=== PATIENT | female | born 1925 | race Caucasian/White ===

== ENCOUNTER 2016-10-01 06:53 | Inpatient (IN) | payer OTHER ==
[~2016-10-01] VITALS: Ht 144.8 cm; Wt 59.2 kg
--- NOTE | 2016-10-01 07:08 | NUR ---
PT HERE FOR CHEST PAIN THAT STARTED LAST NIGHT MIDSTERNAL NONRADIATING AND PROVOKED BY COUGHING AND SPITTING. PER FAMILY AT BEDSIDE PT WAS CHOKING ON HER PHLEGM AND THATS WHY HE BROUGHT HER IN TO THE HOSPITAL. DENIES PAIN UPON ARRIVAL WITH STABLE VITALS AND 0 S/S DISTRESS. CLAIMS SHE HAS BEEN SICK WITH A COLD FOR A FEW DAYS. CONNECTEC TO PPA TEACHER AND AWAITING MD LEUNG
--- NOTE | 2016-10-01 07:10 | NUR ---
DR EN[place]AND AT BEDSIDE
--- NOTE | 2016-10-01 07:25 | NUR ---
LAB AT BEDSIDE
[2016-10-01 07:48] LABS: CALCIUM 9.1 mg/dL (8.5-10.1); CARBON DIOXIDE 27.5 mmol/L (21-32); CHLORIDE SERUM 101 mmol/L (98-107); CREATININE SERUM 0.8 mg/dL (0.6-1.0); GLUCOSE SERUM 152 mg/dL (74-106); POTASSIUM SERUM 3.9 mmol/L (3.5-5.1); SODIUM SERUM 138 mmol/L (136-145)
[2016-10-01 07:53] LABS: ALBUMIN 3.5 g/dL (3.4-5.0); ALKALINE PHOSPHATASE 99 U/L (46-116); ALT/SGPT 7 U/L (14-59); AST/SGOT 24 U/L (15-37); BILIRUBIN TOTAL 0.36 mg/dL (0.20-1.00); TOTAL PROTEIN, SERUM 7.8 g/dL (6.4-8.2)
[2016-10-01 07:59] LABS: BASOPHIL % 0.3 % (0-2); PLATELET COUNT 227 x10^3mcL (130-400); RED CELL DISTRIBUTION WIDTH 14.1 % (11.5-14.5)
--- NOTE | 2016-10-01 08:07 | NUR ---
PATIENT UNABLE TO URINATE AT THIS TIME. GAVE WATER AND WILL CONTINUE TO ENCOURAGE.
--- NOTE | 2016-10-01 08:16 | NUR ---
PATIENT UP TO RESTROOM TO ATTEMPT TO GIVE URINE SAMPLE AT THIS TIME
[2016-10-01] MEDS ORDERED: GALANTAMINE PO (09:03)
[2016-10-01] MEDS ORDERED: NAMENDA10 M2 PO (09:03)
[2016-10-01] MEDS ORDERED: RISPERDAL0.25 MG PO (09:03)
[2016-10-01] MEDS ORDERED: COR6 PO (09:04)
[2016-10-01] MEDS ORDERED: GLIPIZIDE5 M2 PO (09:04)
[2016-10-01] MEDS ORDERED: BENAZEPRIL HYDR20 M1 PO (09:04)
[2016-10-01] MEDS ORDERED: NOR5 PO (09:04)
[2016-10-01] MEDS ORDERED: HYDROCHLOROTHIA25 MG PO (09:04)
[2016-10-01] MEDS ORDERED: SIMVASTATIN40 M1 PO (09:05)
--- NOTE | 2016-10-01 09:25 | NUR ---
REPORT TO STACY GARVIN RN
[2016-10-01 10:39] LABS: PHOSPHOROUS 3.8 mg/dL (2.5-4.9)
[2016-10-01 10:41] LABS: CHOLESTEROL/HDL RATIO 3.2
[2016-10-01 10:49] VITALS: BP 135/59
[2016-10-01 10:49] LABS: FREE T4 1.22 ng/dL (0.76-1.46); FREE THYROXINE INDEX 2.9 ug/dL (1.4-4.5); T4(THYROXINE) 9.8 ug/dL (4.7-13.3)
[2016-10-01 11:01] LABS: UA SPECIFIC GRAVITY 1.015 (1.005-1.035); microscopic required? YES; urine erythrocyte TRACE (NEGATIVE)
--- NOTE | 2016-10-01 11:11 | NUR ---
RECEIVED PATIENT WITH SON ALONG. PATIENTS WANTING TO EAT BUT DUE TO THE NEW ADMISSION THE NURSE WOULD LIKE TO REVIEW THE ORDERS AND THEN ADVISE THE FAMILHY OF PLAN OF CARE. PATIENT VITALS BRITTON LEWIS T 135/59, 20,8.1, 48. PATIENT IS 4'9" AND IS AT A WT OF 130.9 LBS. 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 SON IS HER CAREGIVER WHERE SHE LIVES WITH HIM IN HIS HOME. PATIENT HAS CLEAR BUT DIMINISHED BREATH SPOUNDS AN BOWEL SOUND ACTIVE AND TOELRATED DIET WELL AT HOME. PATIENT HAS HISTORY OF HEMORRIDS AND RECTAL BLEEDING. AND WITH HISTORY OF HIGH CHOLESTEROL AND HYPERTENSION. PATIENT HAS DIABETES AND SHE RECEIVED FENTANYL FOR PAIN IN THE EMERGENCY ROOM AND ASA FOR CHEST PAIN. PATIEN TNOTED TO HAVE HAD ROHECPHIN AT 900AM AND SRTED ON NORMAL SALINE AT 100CC PER HOUR. CHEST XRAY IS NEGATIVE AND PATIENT TOLERATE REOOM AIR AT THIS TIME. PATIENT HAS MODERATE PULSES TO HTE EXTREMTIES AND NO STEFANY NTOED. PATIENT WALKER AND CANE AT HOME BUT SHE REFUSES TO USE PER THE SON. PATIENT IS WITH ALLERGY TO CODINE AND USED TO SMOKE BUT NEVER DRANK. HER TWO SIBLINGS OF THE TWO ONE OF ALZHIEMERS WELL HER MOTHER AND THE OTHER SISTER OF CANCER. FATHER IN AN ACIDENT. WILL CONTINUED TO MONITOR INDICATED.
--- NOTE | 2016-10-01 12:00 | NUR ---
SPOKE THE PERSONAL BANKING ADVISOR AND ADVISED THE PATIENT FAMILY WOULD LIKE TO SPEAK WITH HIM ABOUT HIS MOTHER.
[2016-10-01 13:35] VITALS: BP 149/55
--- NOTE | 2016-10-01 14:06 | NUR ---
SON IS REQUESTING FOR THE SEVERAL TIMES TO HAVE THE DOCTOR COME SPEAK WITH HIM ON THE PATIENTS PLAN OF CARE. SPOKE WITH THE GEOSPATIAL DEVELOPER AND HE WAS FINISHING UP A DICTATION AND THEN STAFF THOUGHT HE FORGOT AND WHEN THE FAMILY COMPLAINED STAFF CALLED AGAIN. THE GEOSPATIAL DEVELOPER STATES HE IS DOING AN ADMISSION AND WILL BE THERE AFTER HE HAS COMPLETED. THE FAMILY AT THIS POINT IS STATING HE IS AGITATED AND NEEDS TO EAT AND SLEEP AND HAS BEEN UP ALL NIGHT. OFFERED TO HAVE THE GEOSPATIAL DEVELOPER CALL HIM ON THE PATIENTS CELL BUT THE FAMILY REFUSED AND WANTS TO DO A FACE TO FACE. ADVISED THE CHARGE NURSE.
--- NOTE | 2016-10-01 17:00 | NUR ---
BLOOD SUGAR AT THIS TIME AT 86 AND NO COVERAGE WAS [id number]. PATIENT IS SO FAR COOPERATIVE AND WILL CONTINUE TO MONITOR INDICATED.
[2016-10-01 18:27] VITALS: BP 111/50
--- NOTE | 2016-10-01 20:00 | NUR ---
PT ALERT/ORIENTED X1. PT SON IN ROOM. 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 NO C/O PAIN. SKIN IS INTACT, INSIDE BUTTOCK FOLDS THE SKIN APPEARS TO BE WHITE. PT SON WANTS PT TO WEAR DIAPERS, PT WEARING DIAPER. INSTRUCTED PT SON THAT THIS HOSPITAL DOES NOT USE DIAPERS ON PT'S AND DISCOURAGES PT FAMILIES NOT TO PUT PT IN DIAPERS IN THE HOSPITAL AND THE REASONING BEHIND IT. PT SON STILL WANTS PT TO WEAR DIAPERS. WILL CONTINUE TO MONITOR.
--- NOTE | 2016-10-01 21:00 | NUR ---
PT TRANSFERED TO ROOM 210A.
[2016-10-01 21:54] VITALS: BP 151/56
[2016-10-01 21:55] VITALS: BP 148/86
--- NOTE | 2016-10-01 23:00 | NUR ---
PT SLEEPING. NO DISTRESS NOTED. WILL CONTINUE TO MONITOR.
--- NOTE | 2016-10-02 01:58 | NUR ---
PT SLEEPING. NO DISTRESS NOTED. WILL CONTINUE TO MONITOR.
--- NOTE | 2016-10-02 03:40 | NUR ---
PT SLEEPING. NO DISTRESS NOTED. BREATHING IS EVEN AND UNLABORED. WILL CONTINUE TO MONITOR.
[2016-10-02 05:29] VITALS: BP 119/44
--- NOTE | 2016-10-02 06:52 | NUR ---
PT SLEPT IN LONG INTERVALS THROUGHOUT THE NIGHT. NO C/O PAIN. WILL CONTINUE TO MONITOR.
--- NOTE | 2016-10-02 07:25 | NUR ---
RECEIVED PATIENT ASLEEP BUT AROUSABLE ORIENTED TO HERSELF , NO DISTRESS NOTED. BED ALARM IN PLACE. IV INTACT, REFUSED SCD. CALL LIGHT WITHIN REACH, CONT TO MONITOR.
--- NOTE | 2016-10-02 09:50 | NUR ---
PATIENT IN BED NO DISTRESS NOTED, ALL DUE MEDS GIVEN; HR 56 HELD COREG AND LOPRESSOR ORDERED. ASSIST PATIENT TO BATHROOM VOIDED AND ASSIST BACK TO BED. REPOSITIONED UP IN BED, CONT TO MONITOR.
[2016-10-02 10:04] VITALS: BP 121/40
--- NOTE | 2016-10-02 11:38 | NUR ---
DR VELASQUEZ WAS PAGE FOR PATIENT'S SON JOE; PER MD WILL SEEN PATIENT SOON; SON WAS INFORM MD WILL TALK HIM. ASSISTING PATIENT TO BATHROOM; SON REMAIN IN ROOM TO KEEP PATIENT SAFETY.
[2016-10-02 12:58] LABS: BASOPHIL % 0.3 % (0-2); PLATELET COUNT 186 x10^3mcL (130-400); RED CELL DISTRIBUTION WIDTH 14.1 % (11.5-14.5)
--- NOTE | 2016-10-02 13:00 | NUR ---
PATIENT IV LEAKING, DC'D INTACT. INFORM SON WHEN PATIENT FINISH WITH LUNCH; WILL RE-INSERT NEW IV SITE. SON ASSISTING PATIENT WITH MEAL AT THIS TIME.
[2016-10-02 13:35] VITALS: BP 120/45
--- NOTE | 2016-10-02 13:47 | NUR ---
Patient resting in bed with son at bedside, Dr. Torres in the room to speak with son Baltazar and update pt's condition; per MD no discharge today waiting for ECHO result. IV re-inserted to RW # 22 with son assisting hold patient arm from pulling; with good blood return and flush well; patient tolerated well. Needs attended. Son request to spend another if mother is not discharge home today inform son will talk to CN. Cont to monitor.
[2016-10-02 14:15] LABS: CALCIUM 8.2 mg/dL (8.5-10.1); CARBON DIOXIDE 26.8 mmol/L (21-32); CHLORIDE SERUM 107 mmol/L (98-107); CREATININE SERUM 0.8 mg/dL (0.6-1.0); GLUCOSE SERUM 116 mg/dL (74-106); MAGNESIUM 1.9 mg/dL (1.8-2.4); PHOSPHOROUS 3.2 mg/dL (2.5-4.9); POTASSIUM SERUM 3.3 mmol/L (3.5-5.1); SODIUM SERUM 140 mmol/L (136-145)
--- NOTE | 2016-10-02 15:00 | NUR ---
FOUND PATIENT WAS UP AT THE SIDE OF BED; TOOK HER GOWN OFF AND TELE WAS REMOVED LEFT IN BED; PATIENT PLAYING WITH IV PUMP; ASSIST PATIENT PUT ON THE GOWN AND PLACE TELE BACK; INSTRUCT PATIENT NOT TO REMOVED THE TELE BOX; ASSIST PATIENT TO BATHROOM HAS SMALL BM; MELODY CARE GIVEN. ASSISTING BACK TO BED. REPOSITIONED UP IN BED, CONT TO MONITOR.
--- NOTE | 2016-10-02 15:58 | NUR ---
PATIENT IS VERY CONFUSED; WON'T KEEP HER TELE MONITOR ON; RE-INFORCED PATIENT TO KEEP IT ON. BATTERY CHARGER TESTER CONSTANT CHECKING ON PATIENT AND TO REMIND TO PATIENT NOT TOUCH MONITOR. BED ALARM ON. CONT TO MONITOR.
--- NOTE | 2016-10-02 16:45 | NUR ---
Patient attempt getting out of bed constantly; unable to keep patient in bed. Per CN will have to restraint patient for safety; Dr. Torres was inform and obtain new order. Assisting patient to bathroom per request, cont to monitor.
[2016-10-02 16:57] VITALS: BP 136/95
--- NOTE | 2016-10-02 17:08 | NUR ---
PATIENT REPOSITIONED UP IN BED; PLACE TELE BOX ON; APPLIED BILAT SOFT WRIST RESTRAINT, PATIENT SCREAMING AND STILL TRY TO GET UP; HELP DESK AGENT TRY TO HELP PATIENT PATIENT IS MORE AGITATED; ALLOW PATIENT TO CALM DOWN, CONT TO MONITOR.
--- NOTE | 2016-10-02 17:20 | NUR ---
PATIENT'S SON ARRIVE AT THIS TIME ABLE TO CALM PATIENT, ASKING NURSE TO REMOVED RESTRAINT; RESTRAINT IS REMOVED. SON WANT TO SPEAK WITH MD. DR. VELASQUEZ WAS INFORM AND WILL SPEAK TO SON.
[2016-10-02] MEDS ORDERED: LAC PO (17:32)
[2016-10-02] MEDS ORDERED: CIPRO500 MG PO (17:32)
--- NOTE | 2016-10-02 17:40 | NUR ---
PATIENT'S SON SPOKE WITH DR. VELASQUEZ AND WANT TO TAKE MOTHER HOME AGAINST MEDICAL ADVICE; AMA FORM SIGN WITH THE PRESENT OF DR. VELASQUEZ. IV DC'D AND INTACT. SON ASSISTING PATIENT GETTING DRESS AT THIS TIME.
--- NOTE | 2016-10-02 17:58 | NUR ---
MORAIMA WHEEL PATIENT OUT AT THIS TIME WITH SON ACCOMPANIED AND ALL BELONGINGS WITH SON.
--- NOTE | 2016-10-03 07:29 | NUR ---
echocardiogram not done -discharged AMA
== END 2016-10-02 17:58 | disposition left against medical advice (07) | DRG 391 ==
LOC: ED 06:53 → DU 08:52
PROVIDERS: Emergency Medicine; ADMIT Family Medicine
DX: K21.9 Gastro-esophageal reflux disease without esophagitis (principal); N17.0 Acute kidney failure with tubular necrosis; N39.0 Urinary tract infection, site not specified; D68.69 Other thrombophilia; E11.65 Type 2 diabetes mellitus with hyperglycemia; E11.51 Type 2 diabetes mellitus with diabetic peripheral angiopathy without gangrene; G30.9 Alzheimer's disease, unspecified; F02.80 Dementia in other diseases classified elsewhere, unspecified severity, without behavioral disturbance, psychotic disturbance, mood disturbance, and anxiety; Z68.26 Body mass index [BMI] 26.0-26.9, adult; Z79.84 Long term (current) use of oral hypoglycemic drugs
CPT/HCPCS: 80307; 83880; 84439; J0696; J3010; J7030; Q0092